=== PATIENT | male | born 1985 | race African-American/Black ===

== ENCOUNTER 2019-09-21 23:52 | Inpatient (IN) ==
[2019-09-22] MEDS ORDERED: LACTATED RINGERS 1,000 ML IV STA (00:10)
[2019-09-22 00:29] LABS: INR 1.1; PT Patient Result 12.1 SECS (9.8-11.9); Partial Thromboplastin Time 27.3 SECS (23.9-33.8)
[2019-09-22] MEDS ORDERED: MIDAZOLAM 2 MG/2 ML VIAL ONE (00:33)
[2019-09-22] MEDS ORDERED: MEPERIDINE 50 MG/1 ML VIAL ONE (00:33)
[2019-09-22] MEDS ORDERED: MIDAZOLAM 2 MG/2 ML VIAL IV STA (00:34)
[2019-09-22] MEDS ORDERED: MEPERIDINE 50 MG/1 ML VIAL IV STA (00:34)
[2019-09-22 00:38] LABS: Basophils % 0.3 % (0.0-0.8); Eosinophils % 0.1 % (0.00-10.9); Hematocrit 45.6 VOL% (42.0-52.0); Hemoglobin 15.6 GM/DL (14.0-18.0); Immature Granulocytes Absolute 0.15 #; Lymphocytes # 2.3 10*3/uL (1.4-4.0); Lymphocytes % 15.4 % (21.2-54.2); Mean Corpuscular HGB Conc 34.2 GM/DL (32-36); Mean Corpuscular Volume 90.7 FL (87-102); Mean Platelet Volume 9.3 FL (9.6-12.0); Neutrophils % 76.2 % (38.7-73.9); Platelet Count 203 T/CUMM (130-400); Red Blood Count 5.03 MC/CUMM (3.8-5.5); Red Cell Distribution Width 11.9 % (9.3-17.3); White Blood Count 14.9 T/CUMM (4-12)
[2019-09-22 00:43] LABS: Alanine Aminotransferase 38 U/L (16-61); Alkaline Phosphatase 42 U/L (45-117); Amylase 77 U/L (25-115); Aspartate Amino Transferase 38 U/L (0-37); Blood Urea Nitrogen 11 MG/DL (7-18); Calcium 8.9 MG/DL (8.5-10.1); Estimated Glom Filtration Rate 78 ML/MIN; Glucose 155 MG/DL (74-106); Osmolality,Calculated 276.7 MOS/KG (273-304); Total Protein 7.5 G/DL (6.4-8.3); Troponin I < 0.015 NG/ML (0.00-0.045)
[2019-09-22] MEDS ORDERED: ONDANSETRON 4 MG/2 ML VIAL IV PRN (01:36)
[2019-09-22] MEDS ORDERED: fentaNYL 100 MCG/2 ML VIAL IV PRN (01:36)
[2019-09-22 02:07] LABS: Apearance,Urine CLEAR (Clear); Bacteria,Urine Occasional /HPF (Few); Bilirubin,Urine Negative (Negative); Blood, Urine Negative (Negative); Glucose,Urine (UA) Negative (Negative); Hyaline Casts,Urine 7 /LPF (0-3); Ketones,Urine Negative (Negative); Mucus,Urine Occasional /LPF (Occasional); Nitrite,Urine Negative (Negative); Protein,Urine Negative; RBC,Urine 1 /HPF (0-4); Urine Color Straw (Yellow); Urine Specific Gravity 1.032 (1.001-1.035); Urine Urobilinogen < 2.0 EU/DL (0.2-1.0); WBC,Urine 1 /HPF (0-6)
[2019-09-22 02:21] LABS: Barbiturates Screen,Urine Negative (Negative); Benzodiazepines Screen,Urine Positive (Negative); Cannabinoid Screen,Urine Positive (Negative); Opiate Screen,Urine Negative (Negative); Phencyclidine Screen,Urine Negative (Negative)
[2019-09-22] MEDS: SODIUM CHLORIDE 0.9% 1,000 ML IV SCH ×2 (03:33→11:42)
[2019-09-22 05:17] LABS: CKMB % 0.8 %; Calcium 8.3 MG/DL (8.5-10.1); Osmolality,Calculated 275.5 MOS/KG (273-304); Troponin I 0.027 NG/ML (0.00-0.045)
[2019-09-22] MEDS ORDERED: ceFAZolin 1,000 MG in SYRINGE 1 EACH IV SCH (06:00)
[2019-09-22] MEDS ORDERED: HYDROmorphone 2 MG/1 ML VIAL IV PRN (08:24)
[2019-09-23] MEDS: SODIUM CHLORIDE 0.9% 1,000 ML IV SCH ×2 (03:05→03:17)
[2019-09-24 16:32] VITALS: BP 137/75
== END 2019-09-24 18:38 | DRG 200 ==
LOC: EDBD 23:52 → N.EDINP 23:52 → N.ED 23:52 → N.EDINP 09-22 02:41 → N.3W 09-22 02:46
PROVIDERS: ADMIT Surgery; ATTEND Surgery